=== PATIENT | female | born 1945 | race Caucasian/White ===

== ENCOUNTER 2016-02-26 11:03 | Emergency (ER) | payer MEDICARE, MEDICAID ==
[2016-02-26 12:14] LABS: ABSOLUTE EOSINOPHILS # (AUTO) 0.1 10^3/uL (0.0-0.6); ABSOLUTE LYMPHOCYTES (AUTO) 0.4 10^3/uL (0.5-4.7); ABSOLUTE MONOCYTES (AUTO) 0.6 10^3/uL (0.1-1.4); ABSOLUTE NEUT (AUTO) 6.1 10^3/uL (1.7-8.2); BASOPHILS % (AUTO) 0.3 % (0-2); EOSINOPHILS % (AUTO) 1.6 % (0-6); HEMATOCRIT 49.4 % (36.0-47.0); HEMOGLOBIN 15.7 g/dL (12.0-15.5); HGB HCT DIFFERENCE -2.3; LYMPHOCYTES % (AUTO) 5.7 % (13-45); MEAN CORPUSCULAR HEMOGLOBIN 29.6 pg (27.0-33.4); MEAN CORPUSCULAR HGB CONC 31.7 g/dL (32.0-36.0); MEAN CORPUSCULAR VOLUME 93 fl (80-97); MONOCYTES % (AUTO) 8.2 % (3-13); RED BLOOD COUNT 5.28 10^6/uL (3.72-5.28); RED CELL DISTRIBUTION WIDTH 14.3 % (11.5-14.0); SEGMENTED NEUTROPHILS % (AUTO) 84.2 % (42-78); WHITE BLOOD COUNT 7.2 10^3/uL (4.0-10.5)
[2016-02-26 12:46] LABS: ALANINE AMINOTRANSFERASE 21 U/L (9-52); ALBUMIN 4.3 g/dL (3.5-5.0); ALKALINE PHOSPHATASE 82 U/L (38-126); ANION GAP 10 (5-19); ASPARTATE AMINO TRANSFERASE 47 U/L (14-36); BILIRUBIN,TOTAL 0.8 mg/dL (0.2-1.3); BLOOD UREA NITROGEN 26 mg/dL (7-20); CALCIUM 10.8 mg/dL (8.4-10.2); CARBON DIOXIDE 34 mmol/L (22-30); CHLORIDE 102 mmol/L (98-107); CREATININE RESULT 0.74 mg/dL (0.52-1.25); GLUCOSE 110 mg/dL (75-110); POTASSIUM 3.9 mmol/L (3.6-5.0); SODIUM 145.9 mmol/L (137-145); TOTAL PROTEIN 7.5 g/dL (6.3-8.2)
[2016-02-26 12:47] LABS: CREATINE KINASE MB 2.38 ng/mL (<4.55)
[2016-02-26 12:48] LABS: TROPONIN I < 0.012 ng/mL
[2016-02-26 12:56] LABS: CREATINE KINASE 51 U/L (30-135)
--- NOTE | 2016-02-26 13:12 | ER Document Report ---
ED General - General Chief Complaint: General Weakness Stated Complaint: WEAKNESS Mode of Arrival: Ambulatory Information source: Patient Notes: 71 yr old female with hx of obstructive disorder who is suppsed ot be on oxygen daily presents with complaints of weakness and sob. pt found by ems sating 835 off oxygen. pt notes when she moves around in her bed the tubing comes off pt denies any concerns at this time. TRAVEL OUTSIDE OF THE [place] IN LAST 30 DAYS: No - HPI Onset: Yesterday Onset/Duration: Sudden, Persistent Quality of pain: No pain Severity: Mild Pain Level: Denies Associated symptoms: Shortness of breath, Weakness Exacerbated by: Denies Relieved by: Denies Similar symptoms previously: Yes Recently seen / treated by doctor: Yes - Related Data Allergies/Adverse Reactions: No Known Allergies Allergy (Verified 12/26/15 11:57) Past Medical History - Social History Smoking Status: Former Smoker Cigarette use (# per day): No Chew tobacco use (# tins/day): No Smoking Education Provided: No Family History: Reviewed & Not Pertinent - Past Medical History Cardiac Medical History: Reports: Hx Hypercholesterolemia, Hx Hypertension Pulmonary Medical History: Reports: Hx COPD Neurological Medical History: Reports: Hx Cerebrovascular Accident Psychiatric Medical History: Reports: Hx Bipolar Disorder, Hx Dementia Past Surgical History: Reports: Other - Patient denies any recent surgery - Immunizations Hx Diphtheria, Pertussis, Tetanus Vaccination: Yes Review of Systems - Review of Systems Notes: REVIEW OF SYSTEMS: CONSTITUTIONAL : Denies fever, chills, or sweats. Denies recent illness. EENT: Denies eye, ear, throat, or mouth pain or symptoms. Denies nasal or sinus congestion or discharge. Denies throat, tongue, or mouth swelling or difficulty swallowing. CARDIOVASCULAR: Denies chest pain. Denies palpitations or racing or irregular heart beat. Denies ankle edema. RESPIRATORY: Admits to shortness breath GASTROINTESTINAL: Denies abdominal pain or distention. Denies nausea, vomiting , or diarrhea. Denies blood in vomitus, stools, or per rectum. Denies black, tarry stools. Denies constipation. GENITOURINARY: Denies difficulty urinating, painful urination, burning, frequency, blood in urine, or discharge. FEMALE GENITOURINARY: Denies vaginal bleeding, heavy or abnormal periods, irregular periods. Denies vaginal discharge or odor. MUSCULOSKELETAL: Denies back or neck pain or stiffness. Denies joint pain or swelling. SKIN: Denies rash, lesions or sores. HEMATOLOGIC : Denies easy bruising or bleeding. LYMPHATIC: Denies swollen, enlarged glands. NEUROLOGICAL: Admits weakness PSYCHIATRIC: Denies anxiety or stress. Denies depression, suicidal ideation, or homicidal ideation. ALL OTHER SYSTEMS REVIEWED AND NEGATIVE. Dictation was performed using [employer] voice recognition software PHYSICAL EXAMINATION: GENERAL: Well-appearing, well-nourished and in no acute distress. HEAD: Atraumatic, normocephalic. EYES: Pupils equal round and reactive to light, extraocular movements intact, conjunctiva are normal. ENT: Nares patent, oropharynx clear without exudates. Moist mucous membranes. NECK: Normal range of motion, supple without lymphadenopathy LUNGS: Breath sounds clear to auscultation bilaterally and equal. No wheezes rales or rhonchi. HEART: Regular rate and rhythm without murmurs ABDOMEN: Soft, nontender, nondistended abdomen. No guarding, no rebound. No masses appreciated. Female : deferred Musculoskeletal: Normal range of motion, no pitting or edema. No cyanosis. NEUROLOGICAL: Cranial nerves grossly intact. Normal speech, normal gait. Normal sensory, motor exams PSYCH: Normal mood, normal affect. SKIN: Warm, Dry, normal turgor, no rashes or lesions noted. Physical Exam - Vital signs Vitals: Temp Pulse Resp BP Pulse Ox 98.0 F 107 H 16 112/74 98 02/26/16 11:12 02/26/16 11:12 02/26/16 11:12 02/26/16 11:12 02/26/16 11:12 Course - Re-evaluation Re-evalutation: 02/26/16 13:10 Patient is quite pleasant in no respiratory distress, satting well with her oxygen on. I believe her hypoxemia is related to noncompliance with nasal cannula. Patient must have her oxygen on at all times given the extent of her obstructive disease, but she is in no distress is stable for discharge at this time Patient requests water in the emergency department and hydrated with no difficulty After performing a Medical Screening Examination, I estimate there is LOW risk for ACUTE CORONARY SYNDROME, RESPIRATORY FAILURE, SEPSIS OR MENINGITIS, thus I consider the discharge disposition reasonable. The patient and I have discussed the diagnosis and risks, and we agree with discharging home with close follow- up. We also discussed returning to the Emergency Department immediately if new or worsening symptoms occur. We have discussed the symptoms which are most concerning (e.g., changing or worsening pain, trouble swallowing or breathing, neck stiffness, fever) that necessitate immediate return. 02/26/16 13:11 - Vital Signs Vital signs: Temp Pulse Resp BP Pulse Ox 98.0 F 107 H 20 112/74 99 02/26/16 11:12 02/26/16 11:12 02/26/16 12:48 02/26/16 11:12 02/26/16 12:48 - Laboratory Result Diagrams: 02/26/16 11:57 02/26/16 11:57 Laboratory results interpreted by me: 02/26/16 02/26/16 11:57 11:57 Hgb 15.7 H Hct 49.4 H MCHC 31.7 L RDW 14.3 H Seg Neutrophils % 84.2 H Lymphocytes % 5.7 L Absolute Lymphocytes 0.4 L Sodium 145.9 H Carbon Dioxide 34 H BUN 26 H Calcium 10.8 H AST 47 H - Diagnostic Test Radiology reviewed: Image reviewed, Reports reviewed - report given to patient Discharge - Discharge Clinical Impression: Hypoxemia COPD (chronic obstructive pulmonary disease) Qualifiers: COPD type: unspecified COPD Qualified Code(s): J44.9 - Chronic obstructive pulmonary disease, unspecified Dementia Qualifiers: Dementia type: unspecified type Dementia behavioral disturbance: without behavioral disturbance Qualified Code(s): F03.90 - Unspecified dementia without behavioral disturbance Condition: Stable Disposition: HOME, SELF-CARE Additional Instructions: Please provide extra tubing for patient for her oxygen Return immediately if there are any other concerns
[2016-02-26 13:25] VITALS: BP 104/82
--- NOTE | 2016-02-26 16:28 | EKG REPORT ---
SEVERITY:- ABNORMAL ECG - SINUS RHYTHM INCOMPLETE RIGHT BUNDLE BRANCH BLOCK : Confirmed by: Durga Duran MD 26-Feb-2016 16:27:41
== END 2016-02-26 14:20 | disposition home or self-care (01) ==
LOC: ER 11:03
DX: R09.02 Hypoxemia (principal); J44.9 Chronic obstructive pulmonary disease, unspecified; F03.90 Unspecified dementia, unspecified severity, without behavioral disturbance, psychotic disturbance, mood disturbance, and anxiety; R53.1 Weakness; R06.02 Shortness of breath; Z99.81 Dependence on supplemental oxygen; E78.00 Pure hypercholesterolemia, unspecified; I10 Essential (primary) hypertension; Z86.73 Personal history of transient ischemic attack (TIA), and cerebral infarction without residual deficits; Z91.19 Patient's noncompliance with other medical treatment and regimen
CPT/HCPCS: 36415; 71010; 80053; 82550; 82553; 83880; 84484; 85025; 87040; 93005; 93010; 99285

== ENCOUNTER 2016-02-28 18:54 | Emergency (ER) | payer MEDICARE, MEDICAID ==
--- NOTE | 2016-02-28 19:54 | ER Document Report ---
ED General - General Chief Complaint: Altered Mental Status Stated Complaint: generalized weakness Cannot obtain history due to: Dementia Notes: Patient is a 71-year-old female who is presenting for ongoing house facility concerns that she was having difficulty feeding herself. She was evaluated 2 days ago for a similar complaint. Patient herself is severely demented and unable to provide meaningful history. She is in a locked memory care unit. She denies any complaints to me at this time. TRAVEL OUTSIDE OF THE [place] IN LAST 30 DAYS: No - Related Data Allergies/Adverse Reactions: No Known Allergies Allergy (Verified 12/26/15 11:57) Past Medical History - General Information source: Emergency Med Personnel Cannot obtain history due to: Dementia - Social History Smoking Status: Unknown if Ever Smoked Frequency of alcohol use: None Drug Abuse: None Lives with: [facility] Family History: Reviewed & Not Pertinent - Past Medical History Cardiac Medical History: Reports: Hx Hypercholesterolemia, Hx Hypertension Pulmonary Medical History: Reports: Hx COPD Neurological Medical History: Reports: Hx Cerebrovascular Accident Psychiatric Medical History: Reports: Hx Bipolar Disorder, Hx Dementia Surgical Hx: Negative Past Surgical History: Reports: Other - Patient denies any recent surgery - Immunizations Hx Diphtheria, Pertussis, Tetanus Vaccination: Yes Review of Systems - Review of Systems Notes: Constitutional: Negative for fever. HENT: Negative for sore throat. Eyes: Negative for visual changes. Cardiovascular: Negative for chest pain. Respiratory: Negative for shortness of breath. Gastrointestinal: Negative for abdominal pain, vomiting or diarrhea. Genitourinary: Negative for dysuria. Musculoskeletal: Negative for back pain. Skin: Negative for rash. Neurological: Negative for headaches, weakness or numbness. 10 point ROS negative except as marked above and in HPI. Physical Exam - Vital signs Vitals: Temp Pulse Resp BP Pulse Ox 97.8 F 75 18 106/85 100 02/28/16 19:08 02/28/16 19:08 02/28/16 19:08 02/28/16 19:08 02/28/16 19:08 Interpretation: Normal Notes: PHYSICAL EXAMINATION: GENERAL: Well-appearing, well-nourished and in no acute distress. HEAD: Atraumatic, normocephalic. EYES: Pupils equal round and reactive to light, extraocular movements intact, sclera anicteric, conjunctiva are normal. ENT: nares patent, oropharynx clear without exudates. Moist mucous membranes. NECK: Normal range of motion, supple without lymphadenopathy LUNGS: Breath sounds clear to auscultation bilaterally and equal. No wheezes rales or rhonchi. HEART: Regular rate and rhythm without murmurs ABDOMEN: Soft, nontender, normoactive bowel sounds. No guarding, no rebound. No masses appreciated. EXTREMITIES: Normal range of motion, no pitting or edema. No cyanosis. NEUROLOGICAL: No focal neurological deficits. Moves all extremities spontaneously and on command. PSYCH: Oriented only to person SKIN: Warm, Dry, normal turgor, no rashes or lesions noted. Course - Re-evaluation Re-evalutation: 02/28/16 19:53 Presentation and an overall well-appearing patient in no acute distress who complains of generalized weakness. At time of evaluation, patient's vitals are within normal limits and they are denying any additional acute complaints. Physical examination without focal findings. No neurologic deficits. They deny any chest pain, shortness of breath, nausea, vomiting, or diarrhea. No dysuria or fever. Basic laboratories including and urinalysis are unremarkable. Troponin is also negative. Low clinical suspicion for ACS, occult pneumonia, acute intra-abdominal pathology, stroke, or transient ischemic attack based on clinical history, examination, and laboratories. They have tolerated oral intake without difficulty. I have discussed the importance of close outpatient follow-up as well as the need to return to emergency room immediately should they have any new or worsening symptoms. The patient and surrogate's are in agreement with this plan and verbalized indications for return to emergency department. - Vital Signs Vital signs: Temp Pulse Resp BP Pulse Ox 98.0 F 75 22 H 98/75 L 91 L 02/28/16 23:22 02/28/16 19:08 02/28/16 23:22 02/28/16 23:22 02/28/16 23:22 - Laboratory Result Diagrams: 02/28/16 20:50 02/28/16 20:50 Laboratory results interpreted by me: 02/28/16 02/28/16 02/28/16 20:50 20:50 20:50 RBC 5.32 H Hct 49.3 H MCHC 31.5 L Lymphocytes % 12.0 L Monocytes % 15.4 H Chloride 95 L Carbon Dioxide 34 H BUN 35 H Est GFR (Non-Af Amer) 56 L Glucose 155 H Calcium 10.7 H Urine Ketones TRACE H Urine Urobilinogen 2.0 H Discharge - Discharge Clinical Impression: Generalized weakness Dementia Qualifiers: Dementia type: unspecified type Dementia behavioral disturbance: without behavioral disturbance Qualified Code(s): F03.90 - Unspecified dementia without behavioral disturbance Condition: Fair Disposition: HOME-SNF (ED ONLY) Additional Instructions: Please return to the emergency room immediately if you experience any concerning symptoms including high fevers, severe headache, chest pain, difficulty breathing, abdominal pain, slurred speech, numbness or weakness in your arms or legs, or any other symptom that concerns you.
[2016-02-28 21:04] LABS: ABSOLUTE EOSINOPHILS # (AUTO) 0.1 10^3/uL (0.0-0.6); ABSOLUTE LYMPHOCYTES (AUTO) 0.6 10^3/uL (0.5-4.7); ABSOLUTE MONOCYTES (AUTO) 0.8 10^3/uL (0.1-1.4); ABSOLUTE NEUT (AUTO) 3.5 10^3/uL (1.7-8.2); BASOPHILS % (AUTO) 0.5 % (0-2); EOSINOPHILS % (AUTO) 2.3 % (0-6); HEMATOCRIT 49.3 % (36.0-47.0); HEMOGLOBIN 15.5 g/dL (12.0-15.5); HGB HCT DIFFERENCE -2.8; MEAN CORPUSCULAR HEMOGLOBIN 29.2 pg (27.0-33.4); MEAN CORPUSCULAR HGB CONC 31.5 g/dL (32.0-36.0); MEAN CORPUSCULAR VOLUME 93 fl (80-97); MONOCYTES % (AUTO) 15.4 % (3-13); RED BLOOD COUNT 5.32 10^6/uL (3.72-5.28); SEGMENTED NEUTROPHILS % (AUTO) 69.8 % (42-78)
[2016-02-28 21:11] LABS: APPEARANCE,URINE SLIGHTLY-CLOUDY; BILIRUBIN,URINE NEGATIVE (NEGATIVE); GLUCOSE, URINE NEGATIVE (NEGATIVE); KETONES,URINE TRACE mg/dL (NEGATIVE); LEUKOCYTE ESTERASE,URINE NEGATIVE (NEGATIVE); NITRITE,URINE NEGATIVE (NEGATIVE); PROTEIN,URINE NEGATIVE (NEGATIVE); URINE SPECIFIC GRAVITY 1.021
[2016-02-28 21:24] LABS: ANION GAP 13 (5-19); BLOOD UREA NITROGEN 35 mg/dL (7-20); CALCIUM 10.7 mg/dL (8.4-10.2); CARBON DIOXIDE 34 mmol/L (22-30); CHLORIDE 95 mmol/L (98-107); CREATINE KINASE 30 U/L (30-135); CREATININE RESULT 0.98 mg/dL (0.52-1.25); GLUCOSE 155 mg/dL (75-110); POTASSIUM 3.6 mmol/L (3.6-5.0); SODIUM 142.4 mmol/L (137-145)
[2016-02-28 21:36] LABS: CREATINE KINASE MB 2.73 ng/mL (<4.55); TROPONIN I 0.027 ng/mL
[2016-02-28 23:30] VITALS: BP 98/75
--- NOTE | 2016-02-29 08:12 | EKG REPORT ---
SEVERITY:- ABNORMAL ECG - SINUS RHYTHM RBBB ST ELEVATION SUGGESTS PERICARDITIS, NEED CLINICAL CORRELATION : Confirmed by: Durga Duran MD 29-Feb-2016 08:11:11
--- NOTE | 2016-02-29 12:57 | EKG REPORT ---
SEVERITY:- ABNORMAL ECG - SINUS RHYTHM INCOMPLETE RIGHT BUNDLE BRANCH BLOCK : Confirmed by: Durga Duran MD 29-Feb-2016 12:57:18
== END 2016-02-28 23:35 ==
LOC: ER 18:54
DX: R53.1 Weakness (principal); F03.90 Unspecified dementia, unspecified severity, without behavioral disturbance, psychotic disturbance, mood disturbance, and anxiety; R41.82 Altered mental status, unspecified; E78.00 Pure hypercholesterolemia, unspecified; I10 Essential (primary) hypertension; J44.9 Chronic obstructive pulmonary disease, unspecified; Z86.73 Personal history of transient ischemic attack (TIA), and cerebral infarction without residual deficits
CPT/HCPCS: 36415; 71010; 80048; 81001; 82550; 82553; 84484; 85025; 93005; 93010; 99285

== ENCOUNTER 2016-05-16 15:16 | Inpatient (IN) | payer MEDICARE ==
--- NOTE | 2016-05-16 15:43 | ER Document Report ---
ED General - General Time seen by provider: 15:39 Mode of Arrival: Medic Information source: Transfer Record, Emergency Med Personnel TRAVEL OUTSIDE OF THE [place] IN LAST 30 DAYS: No - HPI Onset: Other - see HPI note Associated symptoms: Weakness Similar symptoms previously: No Recently seen / treated by doctor: No <LOULOU FLETCHER - Last Filed: 05/16/16 18:15> <BRENDA SCHMITZ - Last Filed: 05/16/16 20:00> - General Chief Complaint: Skin Sore(s) Stated Complaint: WEAKNESS Notes: Patient is a 71 year old female presenting to the emergency department for a sacral wound. Along with his sacral wound the patient also has healing wounds to her heels bilaterally and is hypotensive. Patient was sent over from [facility]. EMS states patient is on hospice care and has not been getting her correct care; the patient's PA is filing a complaint for lack of care for this patient. Patient has no family. Patient has a history of COPD and is oxygen dependent, dementia, bipolar disorder, hypertension, and hypercholesterolemia. Patient has no known allergies. Patient is a DO NOT RESUSCITATE. (LOULOU FLETCHER) - Related Data Allergies/Adverse Reactions: No Known Allergies Allergy (Verified 05/16/16 15:29) Past Medical History - General Information source: Transfer Record, Emergency Med Personnel - Social History Smoking Status: Unknown if Ever Smoked Chew tobacco use (# tins/day): No Frequency of alcohol use: None Drug Abuse: None Family History: None - Past Medical History Cardiac Medical History: Reports: Hx Hypercholesterolemia, Hx Hypertension Pulmonary Medical History: Reports: Hx COPD Neurological Medical History: Reports: Hx Cerebrovascular Accident Psychiatric Medical History: Reports: Hx Bipolar Disorder, Hx Dementia Surgical Hx: Negative - Immunizations Hx Diphtheria, Pertussis, Tetanus Vaccination: Yes <LOULOU FLETCHER - Last Filed: 05/16/16 18:15> Review of Systems - Review of Systems Constitutional: No symptoms reported EENT: No symptoms reported Cardiovascular: No symptoms reported Respiratory: No symptoms reported Gastrointestinal: No symptoms reported Genitourinary: No symptoms reported Female Genitourinary: No symptoms reported Musculoskeletal: No symptoms reported Skin: See HPI Hematologic/Lymphatic: No symptoms reported Neurological/Psychological: See HPI -: Yes All other systems reviewed and negative <LOULOU FLETCHER - Last Filed: 05/16/16 18:15> Physical Exam - Vital signs Interpretation: Hypotensive, Tachycardic <LOULOU FLETCHER - Last Filed: 05/16/16 18:15> <BELBRENDA - Last Filed: 05/16/16 20:00> - Vital signs Vitals: Temp Pulse Resp BP Pulse Ox 97.7 F 115 H 20 98/70 L 100 05/16/16 15:35 05/16/16 15:35 05/16/16 15:35 05/16/16 15:35 05/16/16 15:35 - Notes Notes: GENERAL: Well-nourished and in no acute distress. HEAD: Atraumatic, normocephalic. EYES: Pupils equal round and reactive to light, extraocular movements intact, sclera anicteric, conjunctiva are normal. ENT: Nares patent, nasal cannula in place. Moist mucous membranes. Patent airway. LUNGS: Breath sounds clear to auscultation bilaterally and equal. No wheezes, rales, or rhonchi. HEART: Tachycardia, regular rhythm without murmurs. ABDOMEN: Soft, non-tender. No guarding, no rebound. No masses appreciated. EXTREMITIES: Cachectic. Healing sores of heels bilaterally, unkept toe nails. BACK: Stage 4 sacral decubitus ulcer. NEUROLOGICAL: Disoriented, non-verbal. PSYCH: Affect and mood are normal per patient's baseline. SKIN: Warm, dry. (CHANCELOULOU) Course - Laboratory Result Diagrams: 05/16/16 15:45 05/16/16 15:45 - Consults Patient's sister Orin Bliss Time consulted: 17:25 Hospice care Time consulted: 17:52 <VASQUEZLOULOU PIKE - Last Filed: 05/16/16 18:15> - Laboratory Result Diagrams: 05/16/16 15:45 05/16/16 15:45 - Consults Patient's sister Orin Bliss Consulted provider: will come to ER - Dr. Mead will admit. Requests Tele med bed. <BELBRENDA - Last Filed: 05/16/16 20:00> - Vital Signs Vital signs: Temp Pulse Resp BP Pulse Ox 97.9 F 113 H 20 110/85 100 05/16/16 18:57 05/16/16 18:57 05/16/16 18:57 05/16/16 18:57 05/16/16 18:57 - Laboratory Laboratory results interpreted by me: 05/16/16 05/16/16 15:45 15:45 RDW 14.6 H Seg Neutrophils % 81.3 H Lymphocytes % 9.6 L Chloride 97 L Carbon Dioxide 36 H BUN 44 H Glucose 113 H Calcium 10.5 H Direct Bilirubin 0.5 H AST 38 H Albumin 2.9 L - Consults Patient's sister Orin Bliss Reason for consultation: 05/16/16 17:25 Nurse contacted patient's sister, Orin Bliss, who lives out of town and I spoke with her about patient's care and current state. Sister is aware of the patient's decubitis sore but was hoping it was getting better. She will look for the contact information for the patient's hospice care. Orin Bliss gave nurse 2 numbers to call for patient's hospice care. and [phone] (LOULOU FLETCHER) Hospice care Reason for consultation: 05/16/16 17:52 Called [phone] and spoke to the office manager receptionist Latisha. She will contact the patient's nurse to call back. 05/16/16 17:57 Call from the patient's hospice nurse; this nurse is unaware that the patient is in the emergency department or that she was being sent to the emergency department today. Nurse states that they will get the case management associate involved to determine the correct recommendations for the patient. 05/16/16 18:07 Call from Elisabeth, Hospice care. She states that the patient was evaluated by Dede HILL and sent to the ED to receive care for her bed sore. Elisabeth states that there was some lack of communication because hospice was not contacted about this and they are working on getting better care for this patient and her bed sore including more bed rolls. Patient is on hospice for her COPD. (LOULOU FLETCHER) Discharge <LOULOU FLETCHER - Last Filed: 05/16/16 18:15> - Discharge Admitting Provider: Hospitalist - Dr. Mead Unit Admitted: Telemetry <BRENDA SCHMITZ - Last Filed: 05/16/16 20:00> - Discharge Clinical Impression: Sacral decubitus ulcer, stage IV, Dehydration Condition: Serious Disposition: ADMITTED INPATIENT Referrals: JARET HARO MD [Primary Care Provider] - Follow up as needed Scribe Documentation - Scribe Written by Scribe:: Loulou Fletcher 05/16/16 16:10 acting as scribe for :: Bel <LOULOU FLETCHER - Last Filed: 05/16/16 18:15>
[2016-05-16] MEDS ORDERED: NORMAL SALINE 1000 ML 1,000 ML IV ONE (15:44)
[2016-05-16 16:15] LABS: ABSOLUTE LYMPHOCYTES (AUTO) 0.7 10^3/uL (0.5-4.7); ABSOLUTE MONOCYTES (AUTO) 0.6 10^3/uL (0.1-1.4); ABSOLUTE NEUT (AUTO) 6.2 10^3/uL (1.7-8.2); BASOPHILS % (AUTO) 0.5 % (0-2); EOSINOPHILS % (AUTO) 0.4 % (0-6); HEMATOCRIT 39.9 % (36.0-47.0); HEMOGLOBIN 12.9 g/dL (12.0-15.5); HGB HCT DIFFERENCE -1.2; LYMPHOCYTES % (AUTO) 9.6 % (13-45); MEAN CORPUSCULAR HEMOGLOBIN 29.3 pg (27.0-33.4); MEAN CORPUSCULAR HGB CONC 32.3 g/dL (32.0-36.0); MEAN CORPUSCULAR VOLUME 91 fl (80-97); MONOCYTES % (AUTO) 8.2 % (3-13); RED BLOOD COUNT 4.39 10^6/uL (3.72-5.28); RED CELL DISTRIBUTION WIDTH 14.6 % (11.5-14.0); SEGMENTED NEUTROPHILS % (AUTO) 81.3 % (42-78); WHITE BLOOD COUNT 7.7 10^3/uL (4.0-10.5)
[2016-05-16 16:20] LABS: PROTHROMBIN TIME 12.6 SEC (11.4-15.4)
[2016-05-16 16:31] LABS: ALANINE AMINOTRANSFERASE 24 U/L (9-52); ALBUMIN 2.9 g/dL (3.5-5.0); ALKALINE PHOSPHATASE 90 U/L (38-126); ANION GAP 11 (5-19); ASPARTATE AMINO TRANSFERASE 38 U/L (14-36); BILIRUBIN,DIRECT 0.5 mg/dL (0.0-0.4); BILIRUBIN,TOTAL 0.9 mg/dL (0.2-1.3); BLOOD UREA NITROGEN 44 mg/dL (7-20); CALCIUM 10.5 mg/dL (8.4-10.2); CARBON DIOXIDE 36 mmol/L (22-30); CHLORIDE 97 mmol/L (98-107); CREATININE RESULT 0.65 mg/dL (0.52-1.25); GLUCOSE 113 mg/dL (75-110); POTASSIUM 4.3 mmol/L (3.6-5.0); SODIUM 144.1 mmol/L (137-145); TOTAL PROTEIN 6.6 g/dL (6.3-8.2)
[2016-05-16] MEDS ORDERED: PIPERACILLIN/TAZOBACTAM 3.375 GM VIAL IV ONE (18:25)
[2016-05-16] MEDS ORDERED: NORMAL SALINE 1000 ML 1,000 ML IV PRN ×2 (19:24→20:32)
[2016-05-16] MEDS ORDERED: IPRATROPIUM/ALBUTEROL 0.5-2.5 MG/3 ML AMPUL NEB PRN (20:45)
[2016-05-16] MEDS ORDERED: ACETAMINOPHEN 325 MG TABLET PO PRN (20:50)
[2016-05-16] MEDS ORDERED: 1/2 NORMAL SALINE 1,000 ML IV PRN (20:51)
[2016-05-16 20:55] LABS: ADD ON TESTING BLD IN LAB ACKNOWLEDGE
[2016-05-16 21:06] LABS: MAGNESIUM 1.9 mg/dL (1.6-2.3)
--- NOTE | 2016-05-16 21:07 | PDOC H&P ---
History of Present Illness Admission Date/PCP: 05/16/16 20:13 JARET HARO MD Patient complains of: sacral decub History of Present Illness: LESA HERNANDEZ is a 71 year old occasion female [facility] resident, with underlying hyperlipidemia, oxygen dependent COPD, bipolar disorder, hypertension , sent to the emergency room for evaluation of above complaint. Patient has been discussed with emergency room physician who evaluated the patient. Patient is globally disoriented, almost completely nonverbal, minimally interactive with her surroundings, and is able to provide no history whatsoever in terms of acute or chronic events, review of systems, personal habits, family history, etc. No friends or family are present. Old inpatient records are reviewed. Patient is currently on hospice care. When her physician's graduate teaching assistant noted her sacral decubitus, she reportedly filed a complaint for lack of care for the patient, and was sent to the emergency room for further evaluation of same. Patient reportedly has no family. Patient has a portable DO NOT RESUSCITATE on the chart. Emergency room physician notes are reviewed.No further information available this point in time. . Laboratory results are listed in [employer] and are reviewed. X-ray summary results are listed below, with full report(s) reviewed. . EKG reviewed. And compared to a tracing from February 27 of this year. Social history/personal habits: [facility] resident. Reportedly no use of tobacco alcohol or illicit drugs.No further information available this point in time. Allergies/adverse reactions NKDA. Home medications [facility] medications are to be reconciled into [facility] by pharmacy clinical coordinator. Home medications initially autopopulated into [facility] may not accurately reflect patient's true medications, dosages, and/or frequencies. Unfortunately, patient not able to provide any information related to her medications/dosages/frequencies. REVIEW OF SYSTEMS: See history and present illness.No further information available this point in time. PHYSICAL EXAMINATION: 49.9 kg. Height is not recorded on the chart. Temperature 97.9. Blood pressure 111/83. Pulse 113 and regular. 93% saturation on 2 L oxygen per nasal cannula. Respirations are 25 and unlabored. Male emergency room nurse Tsering is present. Thin, frail elderly female, chronically ill in appearance, who appears perhaps a bit older than her stated age. She is awake, but as noted in history and present illness, is minimally interactive with her surroundings. Does not look at speaker when her name is called. Somewhat anxious, although no corby agitation. Maintaining her airway well. Skin is warm and dry. No grossly obvious evidence of rash in areas of skin examined. No subcutaneous nodules palpated. Has a small noninfected stage II decubitus ulcer on the lateral aspect of each heel. Has a small stage I decubitus ulcer on the medial aspect of her left heel. Has approximately a 3.5 x 8 cm stage IV decubitus ulcer on her sacrum. Foul-smelling. No crepitus fluctuance or expressible discharge. No evidence of infection of the surrounding soft tissue. ENT: [Hearing difficult to evaluate due to her current mental status. Eyes: No scleral icterus. Pupils equal and reactive to light at 4 mm. [place] conjunctivae. No raccoon eyes. Neck is nontender to gentle palpation. Midline trachea. No palpable thyroid nodule mass enlargement or tenderness. Lymphatic: No palpable cervical or clavicular nodes. Neck and lymphatic exams limited by patient body habitus. Psychiatric: Can't be adequately evaluated due to her current status. Lungs: Auscultation reveals clear and equal breath sounds bilaterally. No use of accessory respiratory muscles. Cardiovascular: Heart regular rate and rhythm, without gallop murmur or rub. No carotid or abdominal aortic bruits. No ankle or pedal edema. palpable dorsalis pedis pulses. Abdomen: soft, slightly, distended nontender with positive bowel sounds. Unable to adequately evaluate abdomen for masses or organomegaly due to distention. Extremities: [Feet are warm and dry. No calf tenderness to compression. No grossly obvious visual evidence of calf swelling. Gentle manipulation of lower extremities rather restricted, likely due to probable long-standing bedbound status. Neurologic: [Patellar reflexes absent. Absent Babinski. Light touch can't be determined due to her mental status.. Past Medical History Cardiac Medical History: Reports: Hyperlipidema, Hypertension Pulmonary Medical History: Reports: Chronic Obstructive Pulmonary Disease (COPD) Psychiatric Medical History: Reports: Bipolar Disorder, Dementia Past Surgical History Past Surgical History: Reports: None - Reportedly none; patient can't confirm or deny., Other Social History Information Source: Emergency Med Personnel, [facility] Records Lives with: Retirement Smoking Status: Unknown if Ever Smoked Frequency of Alcohol Use: None Hx Recreational Drug Use: No Drugs: None Hx Prescription Drug Abuse: No - Advance Directive Resuscitation Status: Do Not Resuscitate - Portable DO NOT RESUSCITATE document is on the chart. This will be honored. Surrogate healthcare decision maker:: Uncertain Family History Family History: None Parental Family History Reviewed: No - patient can't provide any information related to same. Children Family History Reviewed: No - patient can't provide any information related to same. Sibling(s) Family History Reviewed.: No - patient can't provide any information related to same. Medication/Allergy Home Medications: Atorvastatin Calcium 10 mg PO QHS 11/10/15 Budesonide/Formoterol Fumarate [Symbicort 80-4.5 Mcg Inhaler] 2 puff IH BID 02/24 Cholecalciferol (Vitamin D3) [Vitamin D3 1000 Unit Tablet] 1,000 unit PO DAILY 11/10/15 Donepezil HCl 10 mg PO QHS 11/10/15 Hydroxyzine HCl 10 mg PO Q8H PRN 11/10/15 Olanzapine 5 mg PO QHS 11/10/15 Primidone 50 mg PO DAILY 11/10/15 Tiotropium [place]le [Spiriva Handihaler 5 Cap/Kit (18 Mcg/Cap)] 1 cap IH DAILY Tramadol HCl 50 mg PO TID PRN 11/10/15 Docusate Sodium [Colace 100 mg Capsule] 100 mg PO BID capsule 11/12/15 Acetaminophen [Tylenol 325 mg Tablet] 2 tab PO Q4H PRN 12/26/15 Albuterol Sulfate [Ventolin Hfa] 2 puff IH Q6H PRN 12/26/15 Calcium Carbonate/Vitamin D3 [Oyster Shell 500-Vit D3 200 Tb] 1 tab PO BID 12/25 Lorazepam [Ativan 0.5 mg Tablet] 0.5 mg PO BID PRN #60 tablet 01/01/16 Prednisone [Deltasone 20 mg Tablet] 10 mg PO DAILY #39 tablet 01/01/16 Allergies/Adverse Reactions: No Known Allergies Allergy (Verified 05/16/16 15:29) Physical Exam Vital Signs: Temp Pulse Resp BP Pulse Ox 97.9 F 113 H 20 110/85 100 05/16/16 18:57 05/16/16 18:57 05/16/16 18:57 05/16/16 18:57 05/16/16 18:57 Results Impressions: Chest X-Ray 05/16/16 15:45 IMPRESSION: COPD. No acute findings. Assessment & Plan - Diagnosis (1) DNR (do not resuscitate) Is this a current diagnosis for this admission?: Yes (2) COPD (chronic obstructive pulmonary disease) Qualifiers: COPD type: unspecified COPD Qualified Code(s): J44.9 - Chronic obstructive pulmonary disease, unspecified Is this a current diagnosis for this admission?: YesPlan: No evidence of acute exacerbation of same.Resume home medications as appropriate once these have been determined and reviewed. (3) Decubitus ulcer of right heel, stage 2 Is this a current diagnosis for this admission?: YesPlan: Innovative mattress. Turn every 2 hours. Surgical consult. Dietary consult. (4) Decubitus ulcer of left heel, stage 1 Is this a current diagnosis for this admission?: YesPlan: As above. (5) Decubitus ulcer of left heel, stage 2 Is this a current diagnosis for this admission?: YesPlan: As above. (6) Dementia Qualifiers: Dementia type: unspecified type Dementia behavioral disturbance: without behavioral disturbance Qualified Code(s): F03.90 - Unspecified dementia without behavioral disturbance Is this a current diagnosis for this admission?: YesPlan: Resume home medications as appropriate once these have been determined and reviewed. (7) Hyperlipidemia Qualifiers: Hyperlipidemia type: unspecified Qualified Code(s): E78.5 - Hyperlipidemia, unspecified Is this a current diagnosis for this admission?: YesPlan: Resume home medications as appropriate once these have been determined and reviewed. (8) Bipolar disorder Qualifiers: Active/Remission status: remission status unspecified Qualified Code (s): F31.9 - Bipolar disorder, unspecified Is this a current diagnosis for this admission?: YesPlan: Resume home medications as appropriate once these have been determined and reviewed. (9) Sacral decubitus ulcer, stage IV Is this a current diagnosis for this admission?: YesPlan: As above. - Inpatient Certification Based on my medical assessment, after consideration of the patient's comorbidities, presenting symptoms, or acuity I expect that the services needed warrant INPATIENT care.: Yes I certify that my determination is in accordance with my understanding of Medicare's requirements for reasonable and necessary INPATIENT services [42 CFR 412.3e].: Yes Medical Necessity: Failure to Improve With Outpatient Therapy, Need for Surgery Post Hospital Care: D/C or Transfer Summary
[2016-05-16] MEDS: HEPARIN SOD (PORCINE) 5,000 UNIT/ML 1 ML SYRINGE SUBCUT SCH (21:41)
--- NOTE | 2016-05-16 22:22 | Operative Report ---
Operative Report DATE OF SURGERY: 05/16/16 PREOPERATIVE DIAGNOSIS: Stage IV sacral decubitus with necrosis POSTOPERATIVE DIAGNOSIS: Same OPERATION: Excisional debridement of skin, subcutaneous tissue, fascia, wound irrigation and packing stage IV sacral decubitus SURGEON: TOMASZ OVALLE ANESTHESIA: Other - none TISSUE REMOVED OR ALTERED: tissue COMPLICATIONS: None ESTIMATED BLOOD LOSS: scant INTRAOPERATIVE FINDINGS: A below PROCEDURE: Patient was rolled on the right lateral decubitus position. Surgical time out was taken. Findings were significant for a large stage IV sacral decubitus with necrotic skin subcutaneous tissue and fascia. Using pickup and #10 blade, skin, subcutaneous tissue, and necrotic was sharply debrided. Approximately 3 grams of tissue was removed. There was some chronic granulation tissue in the base of the wound. The wound was irrigated with saline and peroxide and then saline again, packed with 2 gauze packings. Patient's elevated the procedure well; nursing orders written
--- NOTE | 2016-05-16 22:27 | EKG REPORT ---
SEVERITY:- ABNORMAL ECG - SINUS TACHYCARDIA ATRIAL PREMATURE COMPLEX BIATRIAL ABNORMALITIES RIGHT AXIS DEVIATION BORDERLINE T ABNORMALITIES, ANT-LAT LEADS ST ELEVATION SUGGESTS PERICARDITIS : Confirmed by: Phyllis Mckee MD 16-May-2016 22:26:22
[2016-05-16 23:53] LABS: APPEARANCE,URINE TURBID; BILIRUBIN,URINE NEGATIVE (NEGATIVE); GLUCOSE, URINE NEGATIVE (NEGATIVE); KETONES,URINE TRACE mg/dL (NEGATIVE); LEUKOCYTE ESTERASE,URINE SMALL (NEGATIVE); NITRITE,URINE NEGATIVE (NEGATIVE); PROTEIN,URINE 100 mg/dL (NEGATIVE); URINE SPECIFIC GRAVITY 1.018; UROBILINOGEN,URINE NEGATIVE mg/dL (<2.0)
[2016-05-17 05:47] LABS: ABSOLUTE LYMPHOCYTES (AUTO) 0.6 10^3/uL (0.5-4.7); ABSOLUTE MONOCYTES (AUTO) 0.6 10^3/uL (0.1-1.4); ABSOLUTE NEUT (AUTO) 5.8 10^3/uL (1.7-8.2); BASOPHILS % (AUTO) 0.5 % (0-2); EOSINOPHILS % (AUTO) 0.3 % (0-6); HEMATOCRIT 38.5 % (36.0-47.0); HEMOGLOBIN 12.3 g/dL (12.0-15.5); HGB HCT DIFFERENCE -1.6; LYMPHOCYTES % (AUTO) 8.7 % (13-45); MEAN CORPUSCULAR HEMOGLOBIN 29.5 pg (27.0-33.4); MEAN CORPUSCULAR HGB CONC 31.9 g/dL (32.0-36.0); MEAN CORPUSCULAR VOLUME 92 fl (80-97); RED BLOOD COUNT 4.17 10^6/uL (3.72-5.28); RED CELL DISTRIBUTION WIDTH 14.3 % (11.5-14.0); SEGMENTED NEUTROPHILS % (AUTO) 81.5 % (42-78); WHITE BLOOD COUNT 7.1 10^3/uL (4.0-10.5)
[2016-05-17] MEDS ORDERED: DEXTROSE 40% GEL 15 GM TUBE PO PRN ×2 (06:04)
[2016-05-17] MEDS ORDERED: DEXTROSE 50%-WATER 25 GM/50 ML DISP.SYRIN IV PRN ×2 (06:04)
[2016-05-17] MEDS ORDERED: GLUCAGON,HUMAN RECOMB 1 MG INJ SUBCUT PRN (06:04)
[2016-05-17 06:17] LABS: ANION GAP 11 (5-19); BLOOD UREA NITROGEN 37 mg/dL (7-20); CALCIUM 9.8 mg/dL (8.4-10.2); CARBON DIOXIDE 34 mmol/L (22-30); CHLORIDE 102 mmol/L (98-107); CREATININE RESULT 0.58 mg/dL (0.52-1.25); GLUCOSE 83 mg/dL (75-110); POTASSIUM 3.8 mmol/L (3.6-5.0); SODIUM 146.7 mmol/L (137-145)
[2016-05-17] MEDS ORDERED: HALOPERIDOL 0.5 MG TABLET PO PRN (07:52)
[2016-05-17] MEDS ORDERED: DIAZEPAM 5 MG TABLET PO PRN (07:52)
[2016-05-17 08:33] VITALS: BP 117/81
[2016-05-17] MEDS ORDERED: BUDESONIDE/FORMOTEROL 80-4.5 MCG 60 PUFF/6.9 GM MDI IH SCH (10:00)
[2016-05-17] MEDS ORDERED: TIOTROPIUM BROMIDE DPI 5 CAP/KIT (18 MCG/CAP) IH SCH (10:00)
[2016-05-17] MEDS ORDERED: CEFTRIAXONE 1 GM/D5W RTU 50 ML IV SCH (10:00)
[2016-05-17] MEDS ORDERED: DOCUSATE SODIUM 100 MG CAPSULE PO SCH (10:00)
--- NOTE | 2016-05-17 11:02 | PDOC TRANSFER SUMMARY ---
General - Admit/Disc Date/PCP Admission Date/Primary Care Provider: 05/16/16 20:45 JARET HARO MD Discharge Date: 05/17/16 - Discharge Diagnosis (1) Sacral decubitus ulcer, stage IV Is this a current diagnosis for this admission?: Yes - Additional Information Resuscitation Status: Do Not Resuscitate Discharge Diet: As Tolerated Discharge Activity: Activity As Tolerated Home Medications: Acetaminophen [Tylenol 650 mg Supp] 650 mg TX Q4HP PRN 05/16/16 Atropine Sulfate [Atropine 1% Oph Soln 5 ml] 4 drop SL Q2HP PRN 05/16/16 Budesonide/Formoterol Fumarate [Symbicort HFA 80-4.5 mcg Inhaler 6.9 gm] 2 puff IH Q12 05/16/16 Diazepam [Valium 5 mg Tablet] 5 mg PO Q6HP PRN 05/16/16 Diazepam [Valium 5 mg Tablet] 5 mg TX Q6HP PRN 05/16/16 Diazepam [Valium 5 mg Tablet] 5 mg SL Q6HP PRN 05/16/16 Haloperidol [Haldol 0.5 mg Tablet] 0.5 mg PO Q4HP PRN 05/16/16 Haloperidol [Haldol 0.5 mg Tablet] 0.5 mg TX Q4HP PRN 05/16/16 Haloperidol [Haldol 0.5 mg Tablet] 0.5 mg SL Q4HP PRN 05/16/16 Morphine Sulfate 2.5 mg PO Q1HP PRN 05/16/16 Morphine Sulfate 2.5 mg TX Q1HP PRN 05/16/16 Morphine Sulfate 2.5 mg SL Q1HP PRN 05/16/16 Morphine Sulfate 5 mg PO Q4HP PRN 05/16/16 Morphine Sulfate 5 mg TX Q4HP PRN 05/16/16 Morphine Sulfate 5 mg SL Q4HP PRN 05/16/16 Silver Sulfadiazine [Silvadene 1% Cream 25 gm] 1 applic TOP TID 05/16/16 Tiotropium Boyd [Spiriva Handihaler 18 mcg/dose (30 Dose)] 1 cap IH DAILY 08/25 Papain/Urea [Accuzyme Ointment] 1 applic TP ASDIR PRN #30 oint..gm. 05/17/16 History of Present Illness Admission Date/PCP: 05/16/16 20:45 JARET HARO MD Patient complains of: Patient is nonverbal History of Present Illness: LESA HERNANDEZ is a 71 year old occasion female prison resident, with underlying hyperlipidemia, oxygen dependent COPD, bipolar disorder, hypertension , sent to the emergency room for evaluation of above complaint. Patient has been discussed with emergency room physician who evaluated the patient. Patient is globally disoriented, almost completely nonverbal, minimally interactive with her surroundings, and is able to provide no history whatsoever in terms of acute or chronic events, review of systems, personal habits, family history, etc. No friends or family are present. Old inpatient records are reviewed. Patient is currently on hospice care. When her physician's server assistant noted her sacral decubitus, she reportedly filed a complaint for lack of care for the patient, and was sent to the emergency room for further evaluation of same. Patient reportedly has no family. Patient has a portable DO NOT RESUSCITATE on the chart. Emergency room physician notes are reviewed.No further information available this point in time. . Laboratory results are listed in [employer] and are reviewed. X-ray summary results are listed below, with full report(s) reviewed. . EKG reviewed. And compared to a tracing from February 27 of this year. Social history/personal habits: jail resident. Reportedly no use of tobacco alcohol or illicit drugs.No further information available this point in time. Allergies/adverse reactions NKDA. Home medications prison medications are to be reconciled into [facility] by instructor adjunct pharmacy technician. Home medications initially autopopulated into [facility] may not accurately reflect patient's true medications, dosages, and/or frequencies. Unfortunately, patient not able to provide any information related to her medications/dosages/frequencies. REVIEW OF SYSTEMS: See history and present illness.No further information available this point in time. PHYSICAL EXAMINATION: 49.9 kg. Height is not recorded on the chart. Temperature 97.9. Blood pressure 111/83. Pulse 113 and regular. 93% saturation on 2 L oxygen per nasal cannula. Respirations are 25 and unlabored. Male emergency room nurse Tsering is present. Thin, frail elderly female, chronically ill in appearance, who appears perhaps a bit older than her stated age. She is awake, but as noted in history and present illness, is minimally interactive with her surroundings. Does not look at speaker when her name is called. Somewhat anxious, although no corby agitation. Maintaining her airway well. Skin is warm and dry. No grossly obvious evidence of rash in areas of skin examined. No subcutaneous nodules palpated. Has a small noninfected stage II decubitus ulcer on the lateral aspect of each heel. Has a small stage I decubitus ulcer on the medial aspect of her left heel. Has approximately a 3.5 x 8 cm stage IV decubitus ulcer on her sacrum. Foul-smelling. No crepitus fluctuance or expressible discharge. No evidence of infection of the surrounding soft tissue. ENT: [Hearing difficult to evaluate due to her current mental status. Eyes: No scleral icterus. Pupils equal and reactive to light at 4 mm. [place] conjunctivae. No raccoon eyes. Neck is nontender to gentle palpation. Midline trachea. No palpable thyroid nodule mass enlargement or tenderness. Lymphatic: No palpable cervical or clavicular nodes. Neck and lymphatic exams limited by patient body habitus. Psychiatric: Can't be adequately evaluated due to her current status. Lungs: Auscultation reveals clear and equal breath sounds bilaterally. No use of accessory respiratory muscles. Cardiovascular: Heart regular rate and rhythm, without gallop murmur or rub. No carotid or abdominal aortic bruits. No ankle or pedal edema. palpable dorsalis pedis pulses. Abdomen: soft, slightly, distended nontender with positive bowel sounds. Unable to adequately evaluate abdomen for masses or organomegaly due to distention. Extremities: [Feet are warm and dry. No calf tenderness to compression. No grossly obvious visual evidence of calf swelling. Gentle manipulation of lower extremities rather restricted, likely due to probable long-standing bedbound status. Neurologic: [Patellar reflexes absent. Absent Babinski. Light touch can't be determined due to her mental status.. Hospital Course Hospital Course: Patient who has severe protein calorie malnutrition, dementia, and advanced COPD on home hospice at [facility]. She was sent to ER by [facility] at [facility] for stage iv sacral wound debridement. She was admitted on observation status. Dr Mujica saw the patient for surgery and did local debridement of her sacral wound. Dressing changes to be done daily by nursing staff. Physical Exam Vital Signs: Temp Pulse Resp BP Pulse Ox 97.4 F 106 H 16 117/81 96 05/17/16 07:38 05/17/16 07:38 05/17/16 07:38 05/17/16 07:38 05/17/16 07:38 Intake & Output 05/16/16 05/17/16 05/18/16 06:59 06:59 06:59 Intake Total 610 Output Total 250 Balance 360 Weight 40.4 kg General appearance: PRESENT: no acute distress, thin, well-developed Head exam: PRESENT: atraumatic, normocephalic Eye exam: PRESENT: conjunctiva pink, EOMI, PERRLA. ABSENT: scleral icterus Ear exam: PRESENT: normal external ear exam Mouth exam: PRESENT: dry mucosa, tongue midline Neck exam: ABSENT: carotid bruit, JVD, lymphadenopathy, thyromegaly Respiratory exam: PRESENT: clear to auscultation gokul, symmetrical, unlabored Cardiovascular exam: PRESENT: RRR. ABSENT: diastolic murmur, rubs, systolic murmur Pulses: PRESENT: normal dorsalis pedis pul Vascular exam: PRESENT: normal capillary refill GI/Abdominal exam: PRESENT: normal bowel sounds, soft. ABSENT: distended, guarding, mass, organolmegaly, rebound, tenderness Rectal exam: PRESENT: deferred Extremities exam: PRESENT: full ROM. ABSENT: calf tenderness, clubbing, pedal edema Neurological exam: PRESENT: altered, CN II-XII grossly intact Psychiatric exam: PRESENT: appropriate affect, normal mood. ABSENT: homicidal ideation, suicidal ideation Skin exam: PRESENT: dry, intact, warm. ABSENT: cyanosis, rash Results Laboratory Results: 05/17/16 04:50 05/17/16 04:50 05/17/16 05/17/16 04:50 04:50 WBC 7.1 RBC 4.17 Hgb 12.3 Hct 38.5 MCV 92 MCH 29.5 MCHC 31.9 L RDW 14.3 H Plt Count 245 Seg Neutrophils % 81.5 H Lymphocytes % 8.7 L Monocytes % 9.0 Eosinophils % 0.3 Basophils % 0.5 Absolute Neutrophils 5.8 Absolute Lymphocytes 0.6 Absolute Monocytes 0.6 Absolute Eosinophils 0.0 Absolute Basophils 0.0 Sodium 146.7 H Potassium 3.8 Chloride 102 Carbon Dioxide 34 H Anion Gap 11 BUN 37 H Creatinine 0.58 Est GFR ( Amer) > 60 Est GFR (Non-Af Amer) > 60 Glucose 83 Calcium 9.8 Impressions: Chest X-Ray 05/16/16 15:45 IMPRESSION: COPD. No acute findings. Transfer Plan - Disposition Transfer Plan: Back to [facility] with Hospice - Time Spent with Patient Time spent with patient: Less than 30 Minutes Qualifiers PATEINT BEING DISCHARGED WITH ANY OF THE FOLLOWING DIAGNOSIS?: No
[2016-05-17] MEDS: HEPARIN SOD (PORCINE) 5,000 UNIT/ML 1 ML SYRINGE SUBCUT SCH (11:14)
== END 2016-05-17 15:30 | disposition hospice, home (50) | DRG 570 ==
LOC: ER 15:16 → EH 20:13 → UNDOADMIN 20:13 → EH 20:45 → 3N 05-17 01:30 → EH 05-17 01:30 → UNDODISIN 05-17 15:18
PROVIDERS: ADMIT Family Medicine; ATTEND Family Medicine
PROC: 0JB70ZZ Excision of Back Subcutaneous Tissue and Fascia, Open Approach (ICD-10-PCS; principal; 2016-05-16)
DX: L89.154 Pressure ulcer of sacral region, stage 4 (principal); E43 Unspecified severe protein-calorie malnutrition; R64 Cachexia; Z68.1 Body mass index [BMI] 19.9 or less, adult; Z66 Do not resuscitate; L89.622 Pressure ulcer of left heel, stage 2; L89.612 Pressure ulcer of right heel, stage 2; L89.621 Pressure ulcer of left heel, stage 1; J44.9 Chronic obstructive pulmonary disease, unspecified; F03.90 Unspecified dementia, unspecified severity, without behavioral disturbance, psychotic disturbance, mood disturbance, and anxiety; F31.9 Bipolar disorder, unspecified; I10 Essential (primary) hypertension; E78.5 Hyperlipidemia, unspecified; I95.9 Hypotension, unspecified; Z99.81 Dependence on supplemental oxygen; Z86.73 Personal history of transient ischemic attack (TIA), and cerebral infarction without residual deficits; Z79.899 Other long term (current) drug therapy
CPT/HCPCS: 36415; 71010; 80048; 80053; 81001; 82962; 83605; 83735; 85025; 85610; 87040; 87070; 87075; 87077; 87086; 87186; 87205; 93005; 93010; 96361; 96365; 99285; J1644; J2543; J3490; J7030